=== PATIENT | male | born 2000 | race Two or more races ===

== ENCOUNTER 2022-01-29 14:42 | Emergency (ER) | payer SELFPAY ==
[2022-01-29 14:42] VITALS: BP 170/75; PULSE 81; RESP 18; TEMP 36.9; O2SAT 99; BMI 26.2
[2022-01-29 15:15] VITALS: BMI 26.2
--- NOTE | 2022-01-29 15:16 | XR_ITS ---
FINAL REPORT CLINICAL HISTORY: pain FINDINGS: AP and lateral views were obtained. There is no acute fracture. There is no malalignment. The disc spaces are maintained. IMPRESSION: No acute process. Reviewed, Interpreted and Dictated by Sha Mascorro III, MD Transcribed by René Ocampo Authenticated and [facility]
[2022-01-29 16:20] LABS: Microscopic, Urine URINE MICROSCOPIC (MICROSCOPIC)
[2022-01-29 16:24] LABS: Appearance,Urine CLEAR (Clear); Bilirubin,Urine Negative (Negative); Blood, Urine Negative (Negative); Color,Urine YELLOW (Yellow); Glucose,Urine (UA) Negative (Negative); Ketones,Urine Negative (Negative); Leukocyte Esterase,Urine Negative (Negative); Nitrate,Urine Negative (Negative); Protein,Urine Negative (Negative); Specific Gravity, Urine >= 1.030 (1.005-1.030); Urobilinogen,Urine 0.2 EU/dl (0.2)
[2022-01-29 16:26] VITALS: BP 98/71; PULSE 73; O2SAT 98
[2022-01-29 16:30] VITALS: BP 113/71; PULSE 80; O2SAT 100
[2022-01-29 16:32] LABS: Bacteria,Urine Trace /lpf; Squamous Epithelial Cell,Urine Occasional #/hpf (0-5); WBC,Urine Occasional #/hpf (0-3)
[2022-01-29 17:01] VITALS: BP 108/78; PULSE 75; O2SAT 99
--- NOTE | 2022-01-29 17:10 | XR_ITS ---
PROCEDURE INFORMATION: Exam: XR Pelvis Exam date and time: 01/29/2022 5:23 PM Age: 21 years old Clinical indication: Pelvic pain TECHNIQUE: Imaging protocol: Radiologic exam of the pelvis. Views: 1 or 2 view. COMPARISON: CR XR LUMBAR SPINE 2-3V 01/29/2022 3:47 PM FINDINGS: Bones/joints: There is no evidence of acute fracture. There is no evidence of joint malalignment or dislocation. Soft tissues: No focal soft tissue swelling. IMPRESSION: 1. No evidence of acute fracture. 2. No evidence of acute dislocation.
--- NOTE | 2022-01-29 18:03 | [facility].EDGENADL ---
Discharge Plan Disposition Chief Complaint: PAIN Prescriptions Prescriptions: New ibuprofen 600 mg tablet 600 mg PO Q8H PRN (Reason: pain) Qty: 30 0RF metaxalone 800 mg tablet 800 mg PO TID PRN (Reason: muscle pain) Qty: 20 0RF Referrals Follow up/Referrals: Provider,Referral, [Primary Care Provider] - See instructions Discharge ED Provider: Viraj Christiansen General Adult HPI General Chief complaint: PAIN Stated complaint: back pain Time Seen by Provider: 01/29/22 18:02 Mode of Arrival: Wheelchair Source of Information: Patient Limitations: No Limitations Description of Symptoms (Recalled from ER Triage Doc. 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 Related Data Previous Rx's Medication Instructions Recorded ibuprofen 600 mg tablet 600 mg PO Q8H PRN pain #30 tabs 01/29/22 metaxalone 800 mg tablet 800 mg PO TID PRN muscle pain #20 01/29/22 tabs Allergies Allergy/AdvReac Type Severity Reaction Status Date / Time No Known Allergies Allergy Verified 01/29/22 15:14 PFSH PFSH Social History Smoking Status: Light tobacco smoker alcohol intake: never current occupational status: employed Travel in the last 8 weeks: None ROS Obtained: Yes All systems reviewed & no additional complaints except as documented Physical Exam General General appearance: alert and in no apparent distress Respiratory Respiratory exam: Present normal lung sounds bilaterally Cardiovascular Cardiovascular exam: Present regular rate and normal rhythm Neurological Exam Neurological exam: Present alert and oriented X3 Medical Decision Making Win Inquiry Pt receiving controlled substance: No Vital Signs: 01/29/22 14:42 01/29/22 16:26 01/29/22 16:30 Temperature 98.4 F Temperature Source Oral Pulse Rate 73 80 Pulse Rate [Left Radial] 81 Respiratory Rate 18 Blood Pressure 98/71 L 113/71 Blood Pressure [Right Arm] 170/75 H Blood Pressure Mean 80 85 Blood Pressure Mean [Right Arm] 106 Blood Pressure Source [Right Arm] Automatic Cuff Blood Pressure Position [Right Arm] Sitting 02 Sat by Pulse Oximetry 99 98 100 Oxygen Delivery Method Room Air 01/29/22 17:01 Temperature Temperature Source Pulse Rate 75 Pulse Rate [Left Radial] Respiratory Rate Blood Pressure 108/78 L Blood Pressure [Right Arm] Blood Pressure Mean 88 Blood Pressure Mean [Right Arm] Blood Pressure Source [Right Arm] Blood Pressure Position [Right Arm] 02 Sat by Pulse Oximetry 99 Oxygen Delivery Method Lab Data Lab Results 01/29/22 16:10: Urine Color Yellow, Urine Appearance Clear, Urine pH 6.0, Ur Specific [place] >= 1.030, Urine Protein Negative, Urine Glucose (UA) Negative, Urine Ketones Negative, Urine Blood Negative, Urine Nitrate Negative, Urine Bilirubin Negative, Urine Urobilinogen 0.2, Ur Leukocyte Esterase Negative, Urine RBC None, Urine WBC Occasional, Ur Squamous Epith Cells Occasional, Urine Bacteria Trace Orders (Tests/Meds): ED MEDICATIONS Discontinued Medications Generic Name Dose Route Start Last Admin Trade Name Messi PRN Reason Stop Dose Admin Diazepam 2 mg 01/29/22 15:16 01/29/22 16:26 Diazepam 2mg Tablet PO 01/29/22 15:17 Not Given ONCE ONE Diazepam 5 mg 01/29/22 15:16 01/29/22 15:35 Diazepam 5mg Tablet PO 01/29/22 15:17 5 mg ONCE ONE Administration Ibuprofen 600 mg 01/29/22 15:16 01/29/22 15:45 Ibuprofen 600 Mg Tablet PO 01/29/22 15:17 600 mg ONCE ONE Administration ORDERS Category Date Time Status Pelvis XR 1-2 views [XR pelvis 1-2V] Stat Exams 01/29/22 17:10 Taken XR lumbar spine 2-3V Stat Exams 01/29/22 15:16 Completed Urinalysis and Microscopic Stat Lab 01/29/22 16:10 Completed Critical Care Time Critical Care Time Attestation: On 01/29/22, the high probability of a clinically significant, sudden or life threatening deterioration of the following sy
[2022-01-29 18:31] VITALS: BP 141/70; PULSE 83; O2SAT 99
[2022-01-29 18:35] VITALS: BP 141/70; PULSE 83; RESP 18; TEMP 36.9; O2SAT 98
== END 2022-01-29 18:57 | disposition home or self-care (01) ==
PROVIDERS: Emergency Provider Emergency Medicine
DX: M54.50 Low back pain, unspecified (principal)
CPT/HCPCS: 72100; 72170; 81001; 99283